=== PATIENT | female | born 1955 | race Caucasian/White ===

== ENCOUNTER 2017-11-29 10:16 | Emergency (ER) | payer OTHER ==
[~2017-11-29] VITALS: Ht 157.5 cm; Wt 83.2 kg
[2017-11-29 12:04] VITALS: BP 130/80
== END 2017-11-29 12:08 | disposition home or self-care (01) ==
LOC: ED 10:16
DX: S20.211A Contusion of right front wall of thorax, initial encounter (principal); S40.011A Contusion of right shoulder, initial encounter; W18.09XA Striking against other object with subsequent fall, initial encounter